=== PATIENT | female | born 1990 | race Asian ===

== ENCOUNTER 2017-11-23 05:32 | Day surgery (SDC) | payer OTHER ==
[2017-11-23] MEDS ORDERED: MEPERIDINE 25 MG INJ IV (06:00)
[2017-11-23] MEDS ORDERED: DIPHENHYDRAMINE 50 MG INJ IV (06:00)
[2017-11-23] MEDS ORDERED: FENTAnyl 50 MCG/ML VIAL IV ×3 (06:00)
[2017-11-23] MEDS ORDERED: ONDANSETRON 4 MG INJ IV ×2 (06:00→08:30)
[2017-11-23] MEDS ORDERED: METOCLOPRAMIDE 10 MG INJ IV (06:00)
[2017-11-23] MEDS ORDERED: ALBUTEROL 0.083% (NEB) 2.5 MG/3 ML AMP HHN (06:00)
[2017-11-23] MEDS ORDERED: LIDOCAINE 1% (MPF) 30 ML INJ (06:50)
[2017-11-23] MEDS ORDERED: LIDOCAINE 2% (SDV) 5 ML INJ (06:56)
[2017-11-23] MEDS ORDERED: PROPOFOL 20 ML (06:56)
[2017-11-23] MEDS ORDERED: FENTAnyl 50 MCG/ML VIAL (06:56)
[2017-11-23] MEDS ORDERED: MIDAZOLAM 1 MG/ML 2 ML INJ (06:56)
[2017-11-23] MEDS ORDERED: CEFAZOLIN 1 GM INJ (06:56)
[2017-11-23] MEDS ORDERED: morphine 2 MG INJ IV (08:30)
[2017-11-23] MEDS ORDERED: OXYCODONE/ACETAMINOPHEN (5/325) TAB PO ×2 (08:30)
[2017-11-23] MEDS: LIDOCAINE 1%/EPI 30 ML INJ (10:04)
[2017-11-23] MEDS: BUPIVACAINE 0.25%/EPI (SDV) 30 ML INJ (10:04)
== END 2017-11-23 10:00 | disposition home or self-care (01) ==
LOC: SDS 05:32
DX: L72.3 Sebaceous cyst (principal)
CPT/HCPCS: 11402; 88304

== ENCOUNTER 2017-11-28 07:44 | Emergency (ER) | payer OTHER ==
[2017-11-28] MEDS: DICYCLOMINE 10 MG CAP PO (08:18)
[2017-11-28] MEDS: FAMOTIDINE 20 MG INJ IV (08:18)
[2017-11-28] MEDS: METOCLOPRAMIDE 10 MG INJ IV (08:18)
[2017-11-28] MEDS: SOD CHLORIDE 0.9% 1,000 ML IV (08:22)
[2017-11-28 08:58] LABS: ADD MAN DIFF? NO
[2017-11-28 09:00] LABS: BASOPHIL # 0.1 10^3/ul (0.0-0.1); EOSINOPHILS # 0.5 10^3/ul (0.0-0.5); EOSINOPHILS % 6.4 % (0.0-7.0); HEMATOCRIT 41.5 % (37.0-47.0); HEMOGLOBIN 13.9 g/dl (12.0-16.0); LYMPHOCYTES # 1.6 10^3/ul (0.8-2.9); LYMPHOCYTES % 23.3 % (15.0-51.0); MEAN CORPUSCULAR HEMOGLOBIN 27.6 pg (29.0-33.0); MEAN CORPUSCULAR HGB CONC 33.5 g/dl (32.0-37.0); MEAN CORPUSCULAR VOLUME 82.3 fl (82.0-101.0); MEAN PLATELET VOLUME 10.6 fl (7.4-10.4); MONOCYTE # 0.6 10^3/ul (0.3-0.9); MONOCYTES % 9.1 % (0.0-11.0); NEUTROPHIL # 4.2 10^3/ul (1.6-7.5); NEUTROPHILS % 59.8 % (39.0-77.0); PLATELET COUNT 276 10^3/UL (140-415); RED BLOOD COUNT 5.04 10^6/ul (4.20-5.40); RED CELL DISTRIBUTION WIDTH 14.8 % (11.5-14.5)
[2017-11-28 09:17] LABS: ADD UMIC YES; UR ASCORBIC ACID NEGATIVE (NEGATIVE); UR BACTERIA FEW /HPF (NONE SEEN); UR BILIRUBIN (Dip) 2+ mg/dL (NEGATIVE); UR BLOOD (Dip) 2+ mg/dL (NEGATIVE); UR CLARITY SLIGHTLY CLOUDY (CLEAR); UR COLOR AMBER (YELLOW); UR GLUCOSE (Dip) NEGATIVE (NEGATIVE); UR KETONES (Dip) 1+ mg/dL (NEGATIVE); UR LEUKOCYTE ESTERASE (Dip) NEGATIVE Leu/ul (NEGATIVE); UR MUCUS FEW /HPF (NONE SEEN); UR NITRITE (Dip) NEGATIVE (NEGATIVE); UR RBC 7 /HPF (0-5); UR SPECIFIC GRAVITY (Dip) 1.025 (1.003-1.030); UR SQUAMOUS EPITHELIAL CELL MODERATE /HPF (FEW); UR TOTAL PROTEIN (Dip) 1+ mg/dl (NEGATIVE); UR UROBILINOGEN (Dip) 2+ mg/dL (NEGATIVE); UR WBC 7 /HPF (0-5)
[2017-11-28] MEDS ORDERED: metroNIDAZOLE 500 MG/NS (PMX) 100 ML IVPB (09:30)
[2017-11-28] MEDS ORDERED: CIPROFLOXACIN 400MG/D5W 200 ML (09:30)
[2017-11-28 09:32] LABS: ALANINE AMINOTRANSFERASE 864 IU/L (13-69); ALBUMIN 4.6 g/dl (3.3-4.9); ALBUMIN/GLOBULIN RATIO 1.06; ALKALINE PHOSPHATASE 211 IU/L (42-121); ANION GAP 20 (8-16); ASPARTATE AMINO TRANSFERASE 425 IU/L (15-46); BILIRUBIN,INDIRECT 2.7 mg/dl (0-1.1); BILIRUBIN,TOTAL 4.6 mg/dl (0.2-1.3); BLOOD UREA NITROGEN 6 mg/dl (7-20); CALCIUM 9.4 mg/dl (8.4-10.2); CARBON DIOXIDE 25 mmol/L (21-31); CHLORIDE 104 mmol/L (97-110); CREATININE 0.61 mg/dl (0.44-1.00); GLUCOSE 107 mg/dl (70-220); LIPASE 269 U/L (23-300); POTASSIUM 3.7 mmol/L (3.5-5.1); SODIUM 145 mmol/L (135-144); TOTAL PROTEIN 8.9 g/dl (6.1-8.1)
[2017-11-28] MEDS: CIPROFLOXACIN 400MG/D5W 200 ML IVPB (09:32)
[2017-11-28] MEDS: metroNIDAZOLE 500 MG/NS (PMX) 100 ML IVPB (10:35)
== END 2017-11-28 11:41 | disposition left against medical advice (07) ==
LOC: FTE 07:44
DX: K81.9 Cholecystitis, unspecified (principal); R19.7 Diarrhea, unspecified; F17.210 Nicotine dependence, cigarettes, uncomplicated
CPT/HCPCS: 76705; 80053; 81001; 83690; 85025; 96374; 96375; 99285-25

== ENCOUNTER 2017-11-28 14:36 | Inpatient (IN) | payer OTHER ==
[2017-11-28] MEDS: ONDANSETRON 4 MG INJ IV (22:52)
[2017-11-28] MEDS: morphine 4 MG/ML VIAL IV (22:52)
[2017-11-28] MEDS: SOD CHLORIDE 0.9% 1,000 ML IV (22:52)
[2017-11-28 22:57] LABS: ADD MAN DIFF? NO
[2017-11-28 23:00] LABS: BASOPHILS % 0.5 % (0.0-2.0); EOSINOPHILS # 0.1 10^3/ul (0.0-0.5); EOSINOPHILS % 1.1 % (0.0-7.0); HEMATOCRIT 40.2 % (37.0-47.0); HEMOGLOBIN 13.4 g/dl (12.0-16.0); LYMPHOCYTES # 1.9 10^3/ul (0.8-2.9); LYMPHOCYTES % 21.8 % (15.0-51.0); MEAN CORPUSCULAR HEMOGLOBIN 27.5 pg (29.0-33.0); MEAN CORPUSCULAR HGB CONC 33.3 g/dl (32.0-37.0); MEAN CORPUSCULAR VOLUME 82.4 fl (82.0-101.0); MEAN PLATELET VOLUME 9.7 fl (7.4-10.4); MONOCYTE # 0.8 10^3/ul (0.3-0.9); MONOCYTES % 9.5 % (0.0-11.0); NEUTROPHIL # 5.7 10^3/ul (1.6-7.5); NEUTROPHILS % 66.7 % (39.0-77.0); PLATELET COUNT 247 10^3/UL (140-415); RED BLOOD COUNT 4.88 10^6/ul (4.20-5.40); RED CELL DISTRIBUTION WIDTH 14.6 % (11.5-14.5)
[2017-11-28 23:00] LABS: WHITE BLOOD COUNT 8.6 10^3/ul (4.8-10.8)
[2017-11-28 23:22] LABS: ALANINE AMINOTRANSFERASE 771 IU/L (13-69); ALBUMIN 4.5 g/dl (3.3-4.9); ALBUMIN/GLOBULIN RATIO 1.09; ALKALINE PHOSPHATASE 208 IU/L (42-121); ANION GAP 20 (8-16); ASPARTATE AMINO TRANSFERASE 319 IU/L (15-46); BILIRUBIN,INDIRECT 1.9 mg/dl (0-1.1); BILIRUBIN,TOTAL 3.3 mg/dl (0.2-1.3); BLOOD UREA NITROGEN 4 mg/dl (7-20); CALCIUM 9.4 mg/dl (8.4-10.2); CARBON DIOXIDE 25 mmol/L (21-31); CHLORIDE 103 mmol/L (97-110); GLUCOSE 114 mg/dl (70-220); LIPASE 169 U/L (23-300); POTASSIUM 3.5 mmol/L (3.5-5.1); SODIUM 144 mmol/L (135-144); TOTAL PROTEIN 8.6 g/dl (6.1-8.1)
[2017-11-29 00:06] LABS: ADD UMIC YES; UR ASCORBIC ACID NEGATIVE (NEGATIVE); UR BILIRUBIN (Dip) NEGATIVE (NEGATIVE); UR BLOOD (Dip) 1+ mg/dL (NEGATIVE); UR CLARITY SLIGHTLY CLOUDY (CLEAR); UR COLOR AMBER (YELLOW); UR GLUCOSE (Dip) 2+ mg/dL (NEGATIVE); UR KETONES (Dip) TRACE mg/dL (NEGATIVE); UR LEUKOCYTE ESTERASE (Dip) NEGATIVE Leu/ul (NEGATIVE); UR NITRITE (Dip) NEGATIVE (NEGATIVE); UR RBC 2 /HPF (0-5); UR SPECIFIC GRAVITY (Dip) 1.008 (1.003-1.030); UR SQUAMOUS EPITHELIAL CELL MODERATE /HPF (FEW); UR TOTAL PROTEIN (Dip) NEGATIVE (NEGATIVE); UR UROBILINOGEN (Dip) NEGATIVE (NEGATIVE); UR WBC 3 /HPF (0-5)
[2017-11-29] MEDS: ONDANSETRON 4 MG INJ IV ×3 (01:19→20:13)
[2017-11-29] MEDS ORDERED: ALBUTEROL/IPRATROPIUM (NEB) 3 ML AMP HHN (05:30)
[2017-11-29] MEDS ORDERED: NACL 0.9% 3 ML SYG IV (05:30)
[2017-11-29 09:00] LABS: ADD MAN DIFF? NO
[2017-11-29 09:06] LABS: BASOPHIL # 0.1 10^3/ul (0.0-0.1); BASOPHILS % 1.2 % (0.0-2.0); EOSINOPHILS # 0.1 10^3/ul (0.0-0.5); EOSINOPHILS % 2.1 % (0.0-7.0); HEMATOCRIT 38.9 % (37.0-47.0); HEMOGLOBIN 12.7 g/dl (12.0-16.0); LYMPHOCYTES # 1.9 10^3/ul (0.8-2.9); LYMPHOCYTES % 27.9 % (15.0-51.0); MEAN CORPUSCULAR HEMOGLOBIN 27.1 pg (29.0-33.0); MEAN CORPUSCULAR HGB CONC 32.6 g/dl (32.0-37.0); MEAN CORPUSCULAR VOLUME 82.9 fl (82.0-101.0); MEAN PLATELET VOLUME 10.2 fl (7.4-10.4); MONOCYTE # 0.7 10^3/ul (0.3-0.9); NEUTROPHILS % 58.4 % (39.0-77.0); PLATELET COUNT 243 10^3/UL (140-415); RED BLOOD COUNT 4.69 10^6/ul (4.20-5.40)
[2017-11-29 09:06] LABS: WHITE BLOOD COUNT 6.8 10^3/ul (4.8-10.8)
[2017-11-29 09:37] LABS: ALANINE AMINOTRANSFERASE 672 IU/L (13-69); ALBUMIN/GLOBULIN RATIO 1.02; ALKALINE PHOSPHATASE 197 IU/L (42-121); ANION GAP 17 (8-16); ASPARTATE AMINO TRANSFERASE 258 IU/L (15-46); BILIRUBIN,INDIRECT 2.1 mg/dl (0-1.1); BILIRUBIN,TOTAL 2.8 mg/dl (0.2-1.3); BLOOD UREA NITROGEN 4 mg/dl (7-20); CALCIUM 8.9 mg/dl (8.4-10.2); CARBON DIOXIDE 27 mmol/L (21-31); CHLORIDE 104 mmol/L (97-110); CREATININE 0.63 mg/dl (0.44-1.00); GLUCOSE 101 mg/dl (70-220); MAGNESIUM 1.9 mg/dl (1.7-2.5); PHOSPHORUS 2.9 mg/dl (2.5-4.9); POTASSIUM 3.6 mmol/L (3.5-5.1); SODIUM 144 mmol/L (135-144); TOTAL PROTEIN 7.9 g/dl (6.1-8.1)
[2017-11-29] MEDS: DEXTROSE 5%-0.45% NACL 1,000 ML IV (09:42)
[2017-11-29] MEDS: morphine 4 MG/ML VIAL IV ×2 (09:42→19:18)
[2017-11-29] MEDS: INDOMETHACIN 50 MG SUPP PR (18:00)
[2017-11-29] MEDS: PIPER-TAZO 3.375 GM IV (PMX) 50 ML IVPB (19:26)
[2017-11-30] MEDS: DEXTROSE 5%-0.45% NACL 1,000 ML IV ×3 (01:15→11:05)
[2017-11-30] MEDS: PIPER-TAZO 3.375 GM IV (PMX) 50 ML IVPB ×4 (01:46→19:27)
[2017-11-30 05:09] LABS: ADD MAN DIFF? NO
[2017-11-30 05:12] LABS: BASOPHIL # 0.1 10^3/ul (0.0-0.1); BASOPHILS % 0.8 % (0.0-2.0); EOSINOPHILS # 0.2 10^3/ul (0.0-0.5); EOSINOPHILS % 3.5 % (0.0-7.0); HEMATOCRIT 38.6 % (37.0-47.0); HEMOGLOBIN 12.6 g/dl (12.0-16.0); LYMPHOCYTES # 1.9 10^3/ul (0.8-2.9); MEAN CORPUSCULAR HEMOGLOBIN 27.2 pg (29.0-33.0); MEAN CORPUSCULAR HGB CONC 32.6 g/dl (32.0-37.0); MEAN CORPUSCULAR VOLUME 83.2 fl (82.0-101.0); MEAN PLATELET VOLUME 10.3 fl (7.4-10.4); MONOCYTE # 0.6 10^3/ul (0.3-0.9); MONOCYTES % 10.1 % (0.0-11.0); NEUTROPHIL # 3.3 10^3/ul (1.6-7.5); NEUTROPHILS % 54.1 % (39.0-77.0); PLATELET COUNT 243 10^3/UL (140-415); RED BLOOD COUNT 4.64 10^6/ul (4.20-5.40)
[2017-11-30 05:39] LABS: ANION GAP 16 (8-16); BLOOD UREA NITROGEN 7 mg/dl (7-20); CALCIUM 8.4 mg/dl (8.4-10.2); CARBON DIOXIDE 26 mmol/L (21-31); CHLORIDE 106 mmol/L (97-110); CREATININE 0.69 mg/dl (0.44-1.00); GLUCOSE 133 mg/dl (70-220); PHOSPHORUS 3.4 mg/dl (2.5-4.9); POTASSIUM 3.6 mmol/L (3.5-5.1); SODIUM 144 mmol/L (135-144)
[2017-11-30] MEDS ORDERED: morphine (1 MG/ML) 10ML SYRINGE IV ×3 (06:30)
[2017-11-30] MEDS ORDERED: OXYCODONE/ACETAMINOPHEN (5/325) TAB PO ×2 (06:30)
[2017-11-30] MEDS ORDERED: hydrALAzine 20 MG INJ IV (06:30)
[2017-11-30] MEDS ORDERED: ATROPINE 1 MG/10 ML SYRINGE IV (06:30)
[2017-11-30] MEDS ORDERED: DIPHENHYDRAMINE 50 MG INJ IV (06:30)
[2017-11-30] MEDS ORDERED: ONDANSETRON 4 MG INJ IV (06:30)
[2017-11-30] MEDS ORDERED: HYDROmorphONE (0.2 MG/ML) 10ML SYG IV ×3 (06:30)
[2017-11-30] MEDS ORDERED: EPHEDrine SULFATE 50 MG/5 ML SYG IV (06:30)
[2017-11-30] MEDS ORDERED: FENTAnyl 50 MCG/ML VIAL IV ×2 (06:30)
[2017-11-30] MEDS ORDERED: MEPERIDINE 25 MG INJ IV (06:30)
[2017-11-30] MEDS ORDERED: MIDAZOLAM 1 MG/ML 2 ML INJ IV (06:30)
[2017-11-30] MEDS ORDERED: LABETALOL HCL 20MG INJ IV (06:30)
[2017-11-30] MEDS ORDERED: ONDANSETRON 4 MG INJ ×3 (12:43→13:00)
[2017-11-30] MEDS ORDERED: MIDAZOLAM 1 MG/ML 2 ML INJ (13:00)
[2017-11-30] MEDS ORDERED: SUCCINYLCHOLINE CHLORIDE 100 MG/5 ML SYG IV (13:00)
[2017-11-30] MEDS ORDERED: NEOSTIGMINE 3 MG/3 ML SYRINGE (13:00)
[2017-11-30] MEDS ORDERED: LIDOCAINE 2% (SDV) 5 ML INJ (13:00)
[2017-11-30] MEDS ORDERED: GLYCOPYRROLATE 0.4 MG INJ (13:00)
[2017-11-30] MEDS ORDERED: FENTAnyl 50 MCG/ML VIAL (13:00)
[2017-11-30] MEDS ORDERED: DEXAMETHASONE 4 MG/ML 1 ML INJ (13:00)
[2017-11-30] MEDS ORDERED: CEFAZOLIN 1 GM INJ (13:00)
[2017-11-30] MEDS ORDERED: ROCURONIUM 50 MG INJ (13:00)
[2017-11-30] MEDS: BUPIVACAINE 0.25%/EPI (SDV) 30 ML INJ (14:21)
[2017-11-30] MEDS ORDERED: BISACODYL 10 MG SUPP PR (15:30)
[2017-11-30] MEDS ORDERED: NA PHOSPHATE/BIPHOS 133 ML ENEMA PR (15:30)
[2017-11-30] MEDS ORDERED: HYDROCODONE/APAP (5/325) TAB PO (15:30)
[2017-11-30] MEDS ORDERED: DOCUSATE SODIUM 100 MG CAP PO (15:30)
[2017-11-30] MEDS: HYDROmorphONE 1 MG/ML SYG IV (16:41)
[2017-11-30] MEDS: HYDROCODONE/APAP (5/325) TAB PO (19:58)
[2017-11-30] MEDS: HYDROmorphONE 0.5 MG/0.5 ML SYG IV (21:28)
[2017-12-01] MEDS: PIPER-TAZO 3.375 GM IV (PMX) 50 ML IVPB ×3 (00:46→12:00)
[2017-12-01] MEDS: HYDROmorphONE 0.5 MG/0.5 ML SYG IV ×2 (00:53→05:49)
[2017-12-01] MEDS: HYDROCODONE/APAP (5/325) TAB PO (04:11)
[2017-12-01 05:37] LABS: ADD MAN DIFF? NO
[2017-12-01 05:44] LABS: WHITE BLOOD COUNT 13.9 10^3/ul (4.8-10.8)
[2017-12-01 05:44] LABS: BASOPHILS % 0.1 % (0.0-2.0); HEMATOCRIT 41.4 % (37.0-47.0); HEMOGLOBIN 13.8 g/dl (12.0-16.0); LYMPHOCYTES # 1.1 10^3/ul (0.8-2.9); LYMPHOCYTES % 7.8 % (15.0-51.0); MEAN CORPUSCULAR HEMOGLOBIN 27.6 pg (29.0-33.0); MEAN CORPUSCULAR HGB CONC 33.3 g/dl (32.0-37.0); MEAN CORPUSCULAR VOLUME 82.8 fl (82.0-101.0); MEAN PLATELET VOLUME 10.7 fl (7.4-10.4); MONOCYTES % 6.8 % (0.0-11.0); NEUTROPHIL # 11.8 10^3/ul (1.6-7.5); NEUTROPHILS % 84.9 % (39.0-77.0); PLATELET COUNT 255 10^3/UL (140-415); RED CELL DISTRIBUTION WIDTH 15.5 % (11.5-14.5)
[2017-12-01] MEDS: ONDANSETRON 4 MG INJ IV (05:55)
[2017-12-01 06:10] LABS: INR 0.92; PROTIME 12.4 Sec (11.9-14.9)
[2017-12-01 06:11] LABS: PARTIAL THROMBOPLASTIN TIME 26.3 Sec (25.0-35.0)
[2017-12-01 06:22] LABS: CALCIUM 8.7 mg/dl (8.4-10.2)
[2017-12-01 06:22] LABS: PHOSPHORUS 4.7 mg/dl (2.5-4.9)
[2017-12-01 06:23] LABS: ALANINE AMINOTRANSFERASE 822 IU/L (13-69); ALBUMIN/GLOBULIN RATIO 1.08; ALKALINE PHOSPHATASE 187 IU/L (42-121); ANION GAP 19 (8-16); ASPARTATE AMINO TRANSFERASE 530 IU/L (15-46); B-TYPE NATRIURETIC PEPTIDE 63 PG/ML (0-125); BILIRUBIN,INDIRECT 1.7 mg/dl (0-1.1); BILIRUBIN,TOTAL 2.2 mg/dl (0.2-1.3); BLOOD UREA NITROGEN 11 mg/dl (7-20); CALCIUM 8.8 mg/dl (8.4-10.2); CARBON DIOXIDE 25 mmol/L (21-31); CHLORIDE 101 mmol/L (97-110); CREATININE 0.65 mg/dl (0.44-1.00); GLUCOSE 149 mg/dl (70-220); MAGNESIUM 1.7 mg/dl (1.7-2.5); POTASSIUM 3.6 mmol/L (3.5-5.1); SODIUM 141 mmol/L (135-144); TOTAL PROTEIN 7.7 g/dl (6.1-8.1)
[2017-12-01] MEDS: FAMOTIDINE 20 MG INJ IV (10:13)
[2017-12-01] MEDS: ENOXAPARIN 40 MG/0.4 ML SYG SC (10:15)
== END 2017-12-01 14:19 | disposition home or self-care (01) | DRG 419 ==
LOC: MS1 23:07 → E/R 14:36
PROC: 0FC98ZZ Extirpation of Matter from Common Bile Duct, Via Natural or Artificial Opening Endoscopic (ICD-10-PCS; 2017-11-30 12:30)
PROC: 0FT44ZZ Resection of Gallbladder, Percutaneous Endoscopic Approach (ICD-10-PCS; principal; 2017-11-30 12:52)
DX: K80.64 Calculus of gallbladder and bile duct with chronic cholecystitis without obstruction (principal); F17.200 Nicotine dependence, unspecified, uncomplicated
CPT/HCPCS: 36415; 74330; 80048; 80053; 81001; 82310; 83690; 83735; 83880; 84100; 85025; 85610; 85730; 88304; 96374; 96375; 96376; 99285-25